=== PATIENT | female | born 1980 | race Caucasian/White ===

== ENCOUNTER 2018-06-24 08:37 | Observation (INO) ==
[2018-06-24] MEDS ORDERED: MORPHINE SULFATE INJ 2 MG INJ IVP PRN (09:33)
[2018-06-24] MEDS ORDERED: PHENERGAN INJ 25 MG IVP PRN ×2 (09:42→14:13)
[2018-06-24] MEDS: NS 1000 ML 1,000 ML IV SCH ×2 (09:57→19:30)
[2018-06-24] MEDS: PROTONIX INJ 40 MG VIAL IVP SCH (10:00)
[2018-06-24 10:06] LABS: BASOPHILS % (AUTO) 0.4 % (0.2-1.0); EOSINOPHILS # (AUTO) 0.2 x10^3/uL (0.0-0.2); EOSINOPHILS % (AUTO) 2.2 % (0.9-2.9); HEMATOCRIT 43.4 % (36.0-47.0); HEMOGLOBIN 15.1 g/dL (12.0-16.0); LYMPHOCYTES # (AUTO) 1.3 X10^3/uL (1.3-2.9); LYMPHOCYTES % (AUTO) 11.9 % (21.0-51.0); MEAN CORPUSCULAR HEMOGLOBIN 31.5 pg (27.0-34.0); MEAN CORPUSCULAR HGB CONC 34.8 g/dL (33.0-35.0); MEAN CORPUSCULAR VOLUME 90.6 fL (80.0-100.0); MONOCYTES # (AUTO) 0.7 x10^3/uL (0.3-0.8); MONOCYTES % (AUTO) 6.7 % (0.0-13.0); NEUTROPHILS # (AUTO) 8.3 x10^3/uL (2.2-4.8); NEUTROPHILS % (AUTO) 78.8 % (42.0-75.0); PLATELET COUNT 221 X10^3/uL (150.0-450.0); RED BLOOD COUNT 4.79 X10^6/uL (3.5-5.4); RED CELL DISTRIBUTION WIDTH 13.5 % (11.6-16.5); WHITE BLOOD COUNT 10.6 X10^3/uL (3.6-10.0)
[2018-06-24 10:15] VITALS: BMI 27.3
[2018-06-24 10:22] LABS: ALANINE AMINOTRANSFERASE 18 Units/L (12-78); ALBUMIN 3.9 g/dL (3.4-5.0); ALKALINE PHOSPHATASE 61 Units/L (46-116); AMYLASE 65 Units/L (25-115); ASPARTATE AMINO TRANSFERASE 31 Units/L (15-37); BLOOD UREA NITROGEN 10 mg/dL (7-18); CALCIUM 8.7 mg/dL (8.5-10.1); CARBON DIOXIDE 29.6 mmol/L (21-32); CHLORIDE 103 mmol/L (98-107); CREATININE 0.94 mg/dL (0.55-1.02); LIPASE 225 Units/L (73-393); SODIUM 138 mmol/L (136-145); TOTAL PROTEIN 8.1 g/dL (6.4-8.2); eGFR NON BLACK RACES > 60 (>60)
[2018-06-24 10:33] LABS: SERUM PREGNANCY TEST, QUAL NEGATIVE <10 mIU/mL
--- NOTE | 2018-06-24 10:57 | RAD ---
Indication: Chest pain Exam: Portable chest Comparison: 03/04/2018 Findings: The heart is normal. The pulmonary vessels are normal. No consolidation or effusion is seen . The bones are intact. Impression: Stable chest with no acute abnormality seen . Reported By:
--- NOTE | 2018-06-24 12:21 | US ---
Indication: Pain Exam: Right upper quadrant ultrasound Technique: Transverse and longitudinal grayscale color Doppler images were obtained of the right uppe r quadrant. Findings: The liver is normal size with heterogeneous increased echogenicity throughout . No focal [place] is seen. There is hepatopetal flow in the portal vein and visualized hepatic veins and IVC are u nremarkable . The gallbladder is mildly dilated with some echogenic foci in the lumen near the neck r egion measuring up to 1.7 cm which are shadowing posteriorly . There is diffuse moderate wall thicken ing measuring up to 7-8 mm with no pericholecystic fluid. The common duct measures 3.8 mm. The right kidney measures 9 cm in length and is normal in echogenicity. The visualized aorta and pancreas are u nremarkable. Impression: Multiple gallstones lodged in the neck region of the gallbladder with mild hydrops and diffuse modera te wall thickening which could indicate associated cholecystitis. Suggest a HIDA scan for follow-up, if indicated clinically. Normal size liver with probable fibrofatty changes throughout . Normal common bile duct and pancreas. Reported By:
[2018-06-24] MEDS ORDERED: ANCEF VIAL 1 GRAM IVP ONE (12:24)
[2018-06-24] MEDS ORDERED: LR 1000 ML IV 1,000 ML IV ONE (12:57)
[2018-06-24] MEDS ORDERED: ANCEF 1 GRAM IV PREMIX* 1 G/50 ML BAG IV ONE (12:57)
[2018-06-24] MEDS ORDERED: FENTANYL INJ 250 mcg ONE (13:00)
[2018-06-24] MEDS ORDERED: TORADOL 30 MG VIAL ONE (13:06)
[2018-06-24 13:12] LABS: BILIRUBIN,URINE NEGATIVE (NEGATIVE); BLOOD/HEMOGLOBIN,URINE NEGATIVE (NEGATIVE); GLUCOSE, URINE NEGATIVE (NEGATIVE); KETONES,URINE NEGATIVE (NEGATIVE); LEUKOCYTE ESTERASE ,URINE 2+ (NEGATIVE); NITRITES,URINE NEGATIVE (NEGATIVE); PROTEIN,URINE NEGATIVE (NEGATIVE); UROBILINOGEN,URINE NORMAL (NORMAL)
[2018-06-24 13:19] LABS: APPEARANCE,URINE SLIGHTLY HAZY (CLEAR); BACTERIA,URINE TRACE /HPF (NEGATIVE); COLOR,URINE YELLOW (YELLOW); RBC,URINE 0-2 /HPF (NONE SEEN); SQUAMOUS EPITHELIAL CELL,UR FEW /HPF (NEGATIVE)
[2018-06-24] MEDS ORDERED: BACTROBAN TOPICAL OINT ONE (14:04)
[2018-06-24] MEDS ORDERED: DILAUDID INJ ONE (14:12)
[2018-06-24] MEDS ORDERED: BENADRYL INJ 50 MG VIAL IVP PRN (14:13)
[2018-06-24] MEDS ORDERED: DILAUDID INJ IVP PRN (14:13)
[2018-06-24] MEDS ORDERED: ZOFRAN INJ 4 MG VIAL IVP PRN (14:13)
[2018-06-24] MEDS ORDERED: REGLAN INJ 10 MG VIAL IVP PRN (14:13)
--- NOTE | 2018-06-24 14:21 | DR.H&P ---
H&P - History & Physical for Day of: H&P Date: 06/24/18 - Chief Complaint Chief Complaint: intractable abdominal pain, nv - History of Present Illness History of Present Illness: PT IS A 37WF DIRECT ADMIT FROM DR MILLAN OFFICE AFTER PRESENTING WITH CO INTRACTABLE UPPER ABDOMINAL, N/V FOOD INTOLERANCE. PT STATES SHE HAS HAD CHANGE IN HER DIET OVER THE LAST 3 DAYS, CO RUQ AND EPIGASTRIC PAIN YESTERDAY AFTERNOON, WORSENED WITH ATTEMPTS TO EAT. PT CO UNRELIEVED BY ANTIACIDS OR NORCO FOR PAIN. PT CO PAIN WITH INSPRIATION. PT HAS PMH OF HTN, CURRENTLY ON LISINOPRIL, DENIES CAD OR DM. PT ADMITTED FOR EVALUATION, GB US PAIN CONTROL - Past Medical History Past Medical History: Hypertension - Past Surgical History Surgical History: Ortho Surgery - Social History Does patient currently use any type of tobacco product: No Have you used tobacco products in the last 12 months: No Type of Tobacco Use: None Does any household member use tobacco: No Alcohol Use: None Drug Use: None - Medications Home Medications: No Known Drug Allergies Allergy (Verified 06/24/18 11:14) CONTINUE taking the following medications lisinopril 1 tab PO DAILY 06/24/18 [History] - Review of Systems Constitutional: Weakness Eyes: No Symptoms Reported ENT: No Symptoms Reported Respiratory: Shortness of Breath Cardiovascular: Chest Pain Gastrointestinal: Nausea, Vomiting Genitourinary: No Symptoms Reported Musculoskeletal: Back Pain (MID BACK PAIN) Skin: No Symptoms Reported Neurological: No Symptoms Reported - Physical Exam Vital Signs: Temperature 98.6 F Pulse Rate [Left Brachial] 74 Respiratory Rate 18 Blood Pressure [Right Arm] 142/86 Blood Pressure [Left Arm] 136/83 Blood Pressure 136/83 O2 Sat by Pulse Oximetry 98 Oriented: Normal Eyes: Normal Ear: Right Nose: Normal Throat: Normal Respiratory: Clear Throughout Cardiovascular: Normal : Normal Auscultation: Bowel Sounds: Normal Tenderness: RUQ, Epigastric Skin: Normal Musculoskeletal: Normal Psychiatric: Anxiety Affect: Anxious Speech Pattern: Clear, Appropriate - Assessment/Plan (1) Acute abdominal pain Status: Acute Plan: ADMIT, NPO, PAIN AND NAUSEA CONTROL. PPI, IV HYDRATION, EKG PERFORMED IN DR MILLAN OFFICE. ADMISSION LABS CBC CMP UA, AMYLASE AND LIPASE. CONSULT DR QUINN WITH ABDNORMAL GB US FINDINGS. BP CONTROL (2) RUQ abdominal pain Status: Acute (3) N&V (nausea and vomiting) Status: Acute - Allergies Allergies/Adverse Reactions: Allergies Allergy/AdvReac Type Severity Reaction Status Date / Time No Known Drug Allergies Allergy Verified 06/24/18 11:14
[2018-06-24] MEDS: DILAUDID INJ IVP PRN ×2 (16:00→19:29)
[2018-06-24] MEDS: NORCO 5/325 MG TAB PO PRN (21:37)
[2018-06-25] MEDS: NS 1000 ML 1,000 ML IV SCH ×2 (00:19→04:38)
[2018-06-25] MEDS: DILAUDID INJ IVP PRN ×2 (01:30→07:39)
[2018-06-25] MEDS: NORCO 5/325 MG TAB PO PRN (04:38)
[2018-06-25 06:03] LABS: BASOPHILS % (AUTO) 0.3 % (0.2-1.0); EOSINOPHILS # (AUTO) 0.3 x10^3/uL (0.0-0.2); EOSINOPHILS % (AUTO) 3.3 % (0.9-2.9); HEMATOCRIT 37.8 % (36.0-47.0); HEMOGLOBIN 12.9 g/dL (12.0-16.0); LYMPHOCYTES # (AUTO) 1.6 X10^3/uL (1.3-2.9); LYMPHOCYTES % (AUTO) 16.7 % (21.0-51.0); MEAN CORPUSCULAR HEMOGLOBIN 31.4 pg (27.0-34.0); MEAN CORPUSCULAR HGB CONC 34.1 g/dL (33.0-35.0); MEAN PLATELET VOLUME 8.8 fL (7.4-11.0); MONOCYTES # (AUTO) 0.6 x10^3/uL (0.3-0.8); MONOCYTES % (AUTO) 6.4 % (0.0-13.0); NEUTROPHILS # (AUTO) 6.8 x10^3/uL (2.2-4.8); NEUTROPHILS % (AUTO) 73.3 % (42.0-75.0); PLATELET COUNT 184 X10^3/uL (150.0-450.0); RED BLOOD COUNT 4.11 X10^6/uL (3.5-5.4); RED CELL DISTRIBUTION WIDTH 13.8 % (11.6-16.5); WHITE BLOOD COUNT 9.3 X10^3/uL (3.6-10.0)
[2018-06-25 06:20] LABS: ALANINE AMINOTRANSFERASE 53 Units/L (12-78); ALBUMIN 3.1 g/dL (3.4-5.0); ALKALINE PHOSPHATASE 47 Units/L (46-116); ASPARTATE AMINO TRANSFERASE 79 Units/L (15-37); BLOOD UREA NITROGEN 8 mg/dL (7-18); CALCIUM 7.8 mg/dL (8.5-10.1); CHLORIDE 106 mmol/L (98-107); COR CA(FOR HYPOALB) 8.5 mg/dL (8.5-10.1); CREATININE 0.82 mg/dL (0.55-1.02); SODIUM 139 mmol/L (136-145); TOTAL PROTEIN 6.3 g/dL (6.4-8.2); eGFR NON BLACK RACES > 60 (>60)
[2018-06-25 08:07] VITALS: BP 114/72
[2018-06-25] MEDS: PROTONIX INJ 40 MG VIAL IVP SCH (09:16)
--- NOTE | 2018-06-25 09:24 | DR.PROGNOT ---
Hospital Progress Notes - Progress Note for Day of: Progress Note Date: 06/25/18 - Chief Complaint Chief Complaint: post op lap verena .. doing well , c/o incisional pain .. lab work is normal . afebrile . OK to d/c today - Past Medical Family Social History Past Med/Fam/Surg Hx: No changes since H&P Allergies: Allergies No Known Drug Allergies Allergy (Verified 06/24/18 11:14) - Review Of Systems ROS: No change since H&P - Vital Signs Vital Signs: Temperature 97.7 F Pulse Rate [Left Brachial] 76 Pulse Rate 60 Respiratory Rate 19 Blood Pressure [Right Arm] 114/72 Blood Pressure [Left Arm] 136/83 Blood Pressure 160/91 O2 Sat by Pulse Oximetry 98 - Physical Exam Oriented: Normal Eyes: Normal Ear: Right Nose: Normal Throat: Normal Cardiovascular: Normal : Normal GI:Auscultation: Normal GI: Tenderness: RUQ, Epigastric Skin: Normal Musculoskeletal: Normal Psychiatric: Anxiety Mood Description: Calm Affect: Anxious Speech Pattern: Clear, Appropriate - Laboratory and Diagnostics Result Diagrams: 06/25/18 05:52 06/25/18 05:52 Labs: Laboratory WBC 9.3 X10^3/uL (3.6-10.0) 06/25/18 05:52 RBC 4.11 X10^6/uL (3.5-5.4) 06/25/18 05:52 Hgb 12.9 g/dL (12.0-16.0) D 06/25/18 05:52 Hct 37.8 % (36.0-47.0) 06/25/18 05:52 MCV 92.0 fL (80.0-100.0) 06/25/18 05:52 MCH 31.4 pg (27.0-34.0) 06/25/18 05:52 MCHC 34.1 g/dL (33.0-35.0) 06/25/18 05:52 RDW 13.8 % (11.6-16.5) 06/25/18 05:52 Plt Count 184 X10^3/uL (150.0-450.0) 06/25/18 05:52 MPV 8.8 fL (7.4-11.0) 06/25/18 05:52 Neut % (Auto) 73.3 % (42.0-75.0) 06/25/18 05:52 Lymph % (Auto) 16.7 % (21.0-51.0) L 06/25/18 05:52 Fajardo % (Auto) 6.4 % (0.0-13.0) 06/25/18 05:52 Eos % (Auto) 3.3 % (0.9-2.9) H 06/25/18 05:52 Baso % (Auto) 0.3 % (0.2-1.0) 06/25/18 05:52 Neut # (Auto) 6.8 x10^3/uL (2.2-4.8) H 06/25/18 05:52 Lymph # (Auto) 1.6 X10^3/uL (1.3-2.9) 06/25/18 05:52 Fajardo # (Auto) 0.6 x10^3/uL (0.3-0.8) 06/25/18 05:52 Eos # (Auto) 0.3 x10^3/uL (0.0-0.2) H 06/25/18 05:52 Baso # (Auto) 0.0 X10^3/uL (0.0-0.1) 06/25/18 05:52 Absolute Nucleated RBC 0.0 /100WBC 06/25/18 05:52 Sodium 139 mmol/L (136-145) 06/25/18 05:52 Corrected Sodium TNP 06/25/18 05:52 Potassium 3.7 mmol/L (3.5-5.1) 06/25/18 05:52 Chloride 106 mmol/L (98-107) 06/25/18 05:52 Carbon Dioxide 27.0 mmol/L (21-32) 06/25/18 05:52 BUN 8 mg/dL (7-18) 06/25/18 05:52 Creatinine 0.82 mg/dL (0.55-1.02) 06/25/18 05:52 Est GFR (MDRD) Af Amer > 60 (>60) 06/25/18 05:52 Est GFR (MDRD) Non-Af > 60 (>60) 06/25/18 05:52 Glucose 88 mg/dL (65-99) 06/25/18 05:52 Calcium 7.8 mg/dL (8.5-10.1) L 06/25/18 05:52 Corrected Calcium 8.5 mg/dL (8.5-10.1) 06/25/18 05:52 Total Bilirubin 0.40 mg/dL (0.2-1.0) 06/25/18 05:52 AST 79 Units/L (15-37) H 06/25/18 05:52 ALT 53 Units/L (12-78) 06/25/18 05:52 Alkaline Phosphatase 47 Units/L (46-116) 06/25/18 05:52 Total Protein 6.3 g/dL (6.4-8.2) L 06/25/18 05:52 Albumin 3.1 g/dL (3.4-5.0) L 06/25/18 05:52 Globulin 3.2 g/dL (2.5-4.5) 06/25/18 05:52 Albumin/Globulin Ratio 1.0 Ratio (1.1-2.1) L 06/25/18 05:52 Amylase 65 Units/L (25-115) 06/24/18 09:51 Lipase 225 Units/L (73-393) 06/24/18 09:51 HCG, Qual Negative <10 mIU/mL 06/24/18 09:51 Specimen Type Random urine 06/24/18 13:03 Urine Color Yellow (YELLOW) 06/24/18 13:03 Urine Appearance Slightly hazy (CLEAR) 06/24/18 13:03 Urine pH 7.0 (5.0 - 8.0) 06/24/18 13:03 Ur Specific Norris 1.010 (1.000-1.030) 06/24/18 13:03 Urine Protein Negative (NEGATIVE) 06/24/18 13:03 Urine Glucose (UA) Negative (NEGATIVE) 06/24/18 13:03 Urine Ketones Negative (NEGATIVE) 06/24/18 13:03 Urine Occult Blood Negative (NEGATIVE) 06/24/18 13:03 Urine Nitrite Negative (NEGATIVE) 06/24/18 13:03 Urine Bilirubin Negative (NEGATIVE) 06/24/18 13:03 Urine Urobilinogen Normal (NORMAL) 06/24/18 13:03 Ur Leukocyte Esterase 2+ (NEGATIVE) 06/24/18 13:03 Urine RBC 0-2 /HPF (NONE SEEN) 06/24/18 13:03 Urine WBC 10-20 /HPF (NONE SEEN) 06/24/18 13:03 Ur Squamous Epith Cells Few /HPF (NEGATIVE) 06/24/18 13:03 Urine Bacteria Trace /HPF (NEGATIVE) 06/24/18 13:03 Ur Culture Indicated? No/not indicated 06/24/18 13:03 Tissue Pathology To follow 06/24/18 13:50 - Assessment and Plan 1: post op lap verena . low fat diet . light activities. norco 5 q 4 h PRN. will follow in 10 days .. - Problem Patient Problems: Patient Problems Acute abdominal pain (Acute) R10.9 RUQ abdominal pain (Acute) R10.11 N&V (nausea and vomiting) (Acute) R11.2
[2018-06-25] MEDS ORDERED: DIPRIVAN VIAL ONE (15:09)
[2018-06-25] MEDS ORDERED: ROBINUL ONE (15:09)
[2018-06-25] MEDS ORDERED: VERSED ONE (15:09)
[2018-06-25] MEDS ORDERED: ZOFRAN INJ 4 MG VIAL ONE (15:09)
[2018-06-25] MEDS ORDERED: NEOSTIGMINE INJ ONE (15:09)
[2018-06-25] MEDS ORDERED: QUELICIN (OR ANECTINE) ONE (15:09)
[2018-06-25] MEDS ORDERED: NORCURON INJ 10 MG VIAL ONE (15:09)
[2018-06-25] MEDS ORDERED: SUPRANE IN ONE (15:09)
== END 2018-06-25 11:35 | disposition home or self-care (01) ==
LOC: OBS
PROVIDERS: ADMIT Internal Medicine; ATTEND Internal Medicine
DX: M54.89 Other dorsalgia; R07.89 Other chest pain; K80.00 Calculus of gallbladder with acute cholecystitis without obstruction; R10.13 Epigastric pain; R10.11 Right upper quadrant pain; I10 Essential (primary) hypertension; R11.2 Nausea with vomiting, unspecified; R53.1 Weakness; K59.09 Other constipation
CPT/HCPCS: 36415; 71010; 71045; 76705; 80053; 81001; 82150; 83690; 84703; 85025; A4216; A4222; C9113; G0378; J0330; J0690; J1170; J1885; J2250; J2270; J2405; J2550; J2704; J2710; J3010; J3490; J7030; J7120